=== PATIENT | male | born 1965 | race Caucasian/White ===

== ENCOUNTER 2017-03-10 17:55 | Emergency (ER) | payer BC ==
--- NOTE | 2017-03-10 18:26 | EDM.PDOC ---
ED HPI GENERAL MEDICAL PROBLEM - General Chief Complaint: Lower Extremity Injury/Pain Stated Complaint: LEFT ANKLE PAIN Time Seen by Provider: 03/10/17 18:15 Source of Information: Reports: Patient History Limitations: Reports: No Limitations - History of Present Illness INITIAL COMMENTS - FREE TEXT/NARRATIVE: History of present illness: [52-year-old male presenting with acute onset left ankle pain. Patient indicated he was carrying a cooler down a flight of stairs when he tripped and subsequently twisted his ankle causing him "the second most pain he has had in his life since he broke his ankle last"] Review of systems: As per history of present illness and below otherwise all systems reviewed and negative. Past medical history: As per history of present illness and as reviewed below otherwise noncontributory. Surgical history: As per history of present illness and as reviewed below otherwise noncontributory. Social history: No reported history of drug or alcohol abuse. Family history: As per history of present illness and as reviewed below otherwise noncontributory. Physical exam: HEENT: Atraumatic, normocephalic, pupils reactive, negative for conjunctival pallor or scleral icterus, mucous membranes moist, throat clear, neck supple, nontender, trachea midline. Lungs: Clear to auscultation, breath sounds equal bilaterally, chest nontender. Heart: S1S2, regular, negative for clicks, rubs, or JVD. Abdomen: Soft, nondistended, nontender. Negative for masses or hepatosplenomegaly. Negative for costovertebral tenderness. Pelvis: Stable nontender. Genitourinary: Deferred. Rectal: Deferred. Extremities: Left ankle with bilateral malleolar swelling external greater than internal, peripheral pulses palpable with good color and sensation guarded movement noted to the left not the right, otherwise negative for cords or calf pain. Neurovascular unremarkable. Neuro: Awake, alert, oriented. Cranial nerves II through XII unremarkable. Cerebellum unremarkable. Motor and sensory unremarkable throughout. Exam nonfocal. Diagnostics: [X-ray left ankle and foot] Therapeutics: [] Impression: [Ankle sprain without fracture] Plan: [Monty wrap and crutches ice elevate and NSAIDS] Definitive disposition and diagnosis as appropriate pending reevaluation and review of above. Left Ankle Pain Score (Numeric/FACES): 10 - Related Data Allergies Allergy/AdvReac Type Severity Reaction Status Date / Time No Known Allergies Allergy Verified 03/10/17 18:05 Home Meds: Home Meds . [No Known Home Meds] 03/10/17 [History] Review of Systems - Review of Systems Review Of Systems: See Below (See history of present illness) Trauma Exam - Physical Exam Exam: See Below (See history of present illness) Course - Vital Signs Last Recorded V/S: Last Vital Signs Temp 36.9 C 03/10/17 18:06 Pulse 89 03/10/17 18:06 Resp 16 03/10/17 18:06 BP 162/99 H 03/10/17 18:06 Pulse Ox 10 L 03/10/17 18:06 - Orders/Labs/Meds Orders: Active Orders 24 hr Category Date Time Status Ankle Min 3V Lt [CR] Stat Exams 03/10/17 17:58 Taken Foot 2V Lt [CR] Stat Exams 03/10/17 17:58 Taken Departure - Departure Time of Disposition: 18:57 Disposition: Home, Self-Care 01 Condition: good Clinical Impression: Ankle sprain - Discharge Information Instructions: Ankle Sprain, [id number] Forms: ED Department Discharge Additional Instructions: The following information is given to patients seen in the emergency department who are being discharged to home. This information is to outline your options for follow-up care. We provide all patients seen in our emergency department with a follow-up referral. The need for follow-up, as well as the timing and circumstances, are variable depending upon the specifics of your emergency department visit. If you don't have a primary care physician on staff, we will provide you with a referral. We always advise you to contact your personal physician following an emergency department visit to inform them of the circumstance of the visit and for follow-up with them and/or the need for any referrals to a consulting specialist. The emergency department will also refer you to a specialist when appropriate. This referral assures that you have the opportunity for follow-up care with a specialist. All of these measure are taken in an effort to provide you with optimal care, which includes your follow-up. Under all circumstances we always encourage you to contact your private physician who remains a resource for coordinating your care. When calling for follow-up care, please make the office aware that this follow-up is from your recent emergency room visit. If for any reason you are refused follow-up, please contact the [facility] Emergency Department at and asked to speak to the emergency department charge nurse. Keep off foot as much as possible Ice elevate use crutches to ambulate May use [id number] pain medication Followup with your PCP 1-2 days I am giving you an orthopedic referral for continued pain discomfort and further evaluation [facility] Professional [address], [address] [address]
[2017-03-10 19:41] VITALS: BP 136/77
--- NOTE | 2017-03-11 14:13 | CR ---
EXAM DATE: 03/10/17 PATIENT'S AGE: 52 Patient: VIKAS HORN Facility: [place], [place] Site . Site : 1965 Study: XRay Extremity ankle [id number]/29/2017 6:20:53 PM Ordering Physician: Doctor Diaz Final Report: INDICATION: Ankle injury TECHNIQUE: Ankle radiograph 3 views left COMPARISON: None FINDINGS: Bones: Alignment is normal. No acute fractures or aggressive bone lesions identified. Joint spaces: Unremarkable. No ankle joint effusion is seen. Soft tissues: Mild lateral swelling seen. No radiopaque foreign bodies are seen. IMPRESSION: 1. No acute osseous injuries are noted. Dictated by: Michael Yuan MD @ 03/10/2017 18:44:37 (Electronic Signature) Report Signed by Proxy. DEANN
--- NOTE | 2017-03-11 14:14 | CR ---
EXAM DATE: 03/10/17 PATIENT'S AGE: 52 Patient: VIKAS HORN Facility: [place], [place] Site . Site : 1965 Study: XRay Extremity foot [id number]/29/2017 6:21:12 PM Ordering Physician: Doctor Diaz Final Report: INDICATION: Foot injury TECHNIQUE: Foot radiograph 2 views left COMPARISON: None FINDINGS: Bones: Alignment is normal. A small linear density is seen along the lateral anterior calcaneus. Evaluation of the digits are limited by extension. Joint spaces: Unremarkable. No ankle effusion is seen. Soft tissues: Unremarkable. Kager`s fat pad is normal in appearance. The visualized Achilles` tendon is unremarkable. No radiopaque foreign bodies are seen. IMPRESSION: 1. A small linear density is seen along the lateral anterior calcaneus. Correlation with physical exam is recommended in this region to exclude an acute small avulsion fracture. Dictated by: Michael Yuan MD @ 03/10/2017 18:48:34 (Electronic Signature) Report Signed by Proxy. DEANN
== END 2017-03-10 19:25 | disposition home or self-care (01) ==
LOC: MW.ED 17:55
DX: S93.402A Sprain of unspecified ligament of left ankle, initial encounter (principal); W18.40XA Slipping, tripping and stumbling without falling, unspecified, initial encounter
CPT/HCPCS: 73610-26-LT; 73610-LT; 73620-26-LT; 73620-LT; 99283